=== PATIENT | male | born 1940 | race Caucasian/White ===

== ENCOUNTER 2021-06-03 07:54 | Emergency (ER) | payer MEDICARE, OTHER ==
[2021-06-03] MEDS ORDERED: GLUCAGON 1 MG/ML VIAL IVP STA (08:07)
[2021-06-03 08:08] VITALS: BP 181/76
--- NOTE | 2021-06-03 08:12 | ED Physician Documentation ---
History of Present Illness - Stated complaint Stated Complaint: FB IN THROAT - Chief complaint Chief Complaint: Heent - History obtained from History obtained from: Patient - Additonal information Additional information: Swallowing a fiber pill this morning and it got stuck at the level of the clavicles and now cannot eat or drink. He vomited immediately. Says this happened once before 20 years ago. Review of Systems Ten Systems: 10 systems reviewed and negative Constitutional: denies: Fever, Chills Cardiac: reports: Reviewed and negative Respiratory: reports: Reviewed and negative PD PAST MEDICAL HISTORY - Allergies Allergies/Adverse Reactions: Allergies Allergy/AdvReac Type Severity Reaction Status Date / Time No Known Drug Allergies Allergy Verified 06/03/21 08:04 PD ED PE NORMAL - Vitals Vital signs reviewed: Yes - General General: Alert and oriented X 3, No acute distress - HEENT HEENT: Pharynx benign - Neck Neck: Supple, no meningeal sign, No bony TTP - Cardiac Cardiac: RRR, No murmur - Respiratory Respiratory: No respiratory distress, Clear bilaterally - Abdomen Abdomen: Normal bowel sounds, Soft, Non tender - Back Back: No CVA TTP, No spinal TTP - Derm Derm: Normal color, Warm and dry - Extremities Extremities: No edema, No calf tenderness / cord - Neuro Neuro: Alert and oriented X 3, Normal speech Results - Vitals Vitals: Vital Signs - 24 hr 06/03/21 08:00 Temperature 36.0 C L Heart Rate 69 Respiratory 19 Rate Blood Pressure 181/76 H O2 Saturation 100 Oxygen O2 Source Room air PD MEDICAL DECISION MAKING - ED course ED course: 80-year-old gentleman with a pill foreign body in the esophagus or at least sensation of that. Prior to the administration of glucagon or IV placement he passed the obstruction on his own and was able to tolerate liquids. Discussed with him that it is not unreasonable to talk with his primary about a referral for follow-up EGD to rule out mass lesion but this is not emergent. Departure - Departure Disposition: 01 Home, Self Care Clinical Impression: Acute esophageal obstruction Condition: Good Record reviewed to determine appropriate education?: Yes Instructions: ED Foreign Body Esophageal Rslv Comments: As discussed, thankfully passed the pill on your own but it would be reasonable for you to talk with your primary care physician about a follow-up for upper endoscopy to rule out mass lesion in the esophagus. Return if worse. Your blood pressure was elevated today on check into the emergency department. This does not mean that you have hypertension, it is a common phenomenon to come to the emergency department and have elevated blood pressure. I recommend that you see your primary care physician within the week to have it rechecked when you are feeling better.
[2021-06-03] MEDS ORDERED: DEXTROSE 5% IV STA (08:33)
[2021-06-03] MEDS ORDERED: GLUCAGON IV STA (08:33)
== END 2021-06-03 08:58 | disposition home or self-care (01) ==
LOC: ED 07:54
DX: T18.108A Unspecified foreign body in esophagus causing other injury, initial encounter (principal); X58.XXXA Exposure to other specified factors, initial encounter
CPT/HCPCS: 99281; 99282